=== PATIENT | male | born 1940 | race Caucasian/White ===

== ENCOUNTER 2017-06-29 23:59 | Observation (INO) | payer MEDICARE, OTHER ==
[~2017-06-29] VITALS: Ht 147.3 cm; Wt 52.5 kg
[~2017-06-29 23:59] MED LIST: DOXY100T PO; TESS200C PO; Z.0.NO CURRENT MEDS
[2017-06-30] VITALS (11 sets, daily range): BP systolic 118–148; BP diastolic 60–75; PULSE 75–105; RESP 16–20; TEMP 97.1–98.2; O2SAT 91–98
[2017-06-30] MEDS ORDERED: OFFICE MEDICATION PO (00:17)
[2017-06-30] MEDS ORDERED: ASPI81CH37 CHEW (00:17)
[2017-06-30] MEDS: RESP: ALBUTEROL 2.5 MG/IPRATROPIUM 0.5 MG NEB (SCH) INH ×4 (00:44→07:49)
[2017-06-30] MEDS ORDERED: SODIUM CHLORIDE 0.9% FLUSH 10 ML FLUSH IVF PRN (00:45)
[2017-06-30] MEDS ORDERED: methylPREDNISolone SOD SUCC 125 MG/2 ML VIAL IVP ONE (00:45)
[2017-06-30] MEDS ORDERED: LEVOFLOXACIN 750 MG PREMIX INJ 150 ML IV ONE (00:45)
[2017-06-30 01:03] LABS: AUTOMATED NEUTROPHIL # 4.3 TH/MM3 (1.8-7.7); BASOPHIL % 0.3 % (0.0-2.0); EOSINOPHIL # 0.2 TH/MM3 (0-0.4); EOSINOPHIL % 3.4 % (0.0-4.0); HEMATOCRIT 43.4 % (39.0-51.0); HEMO FLAGS DIFF FINAL; LYMPH % 25.3 % (9.0-44.0); LYMPHOCYTE # 1.8 TH/MM3 (1.0-4.8); MEAN CELL VOLUME 94.8 FL (80.0-100.0); MEAN CORPUSCULAR HEMOGLOBIN 32.2 PG (27.0-34.0); MONO % 11.4 % (0.0-8.0); NEUT % 59.6 % (16.0-70.0); PLATELET COUNT 303 TH/MM3 (150-450); RED BLOOD COUNT 4.58 MIL/MM3 (4.50-5.90); RED CELL DISTRIBUTION WIDTH 13.3 % (11.6-17.2); WHITE BLOOD COUNT 7.2 TH/MM3 (4.0-11.0)
[2017-06-30 01:05] LABS: BLOOD, URINE NEG (NEG); COMMENT (UR) CULT NOT INDICATED; CULTURE IF INDICATED CULT NOT INDICATED; GLUCOSE,URINE NEG (NEG); HYALINE CAST, URINE 3 /lpf (RARE); KETONE, URINE NEG (NEG); MUCUS URINE FEW /lpf (OCC); NITRITE,URINE NEG (NEG); SQUAMOUS EPITHELIAL CELL URINE <1 /hpf (0-5); URINE COLOR YELLOW (YELLW/STRAW)
--- NOTE | 2017-06-30 01:10 | RADRPT ---
EXAM DATE/TIME: 06/30/2017 00:59 [place] COMPARISON: No previous studies available for comparison. INDICATIONS : Short of breath. MEDICAL HISTORY : None. SURGICAL HISTORY : None. ENCOUNTER: Initial ACUITY: 1 day PAIN SCORE: 8/10 LOCATION: Bilateral chest FINDINGS: Marked scoliotic deformity of the thoracic spine. There are patchy airspace opacity in the right mid and lower lung zones. Cardiomediastinal contours are grossly unremarkable given significant chest wal l deformity. CONCLUSION: 1. Marked thoracic scoliosis and associated chest wall deformity significantly limits this portable e xamination. 2. Patchy airspace disease in the right mid and lower lung zones nay reflect atelectasis although inf ection or aspiration cannot be excluded in the appropriate clinical setting. Boyd Alan MD on June 30, 2017 at 1:07 Board Certified Radiologist. This report was verified electronically.
--- NOTE | 2017-06-30 01:16 | PD ---
HPI Chief Complaint: Chest Pain Time Seen by Provider: 00:34 Travel History International Travel<30 days: No Contact w/Intl Traveler<30days: No Traveled to known affect area: No History of Present Illness HPI The patient is a 77 year old male who presents to the [facility] emergency department with a history of intermittent chest pressure and shortness of breath that he reports began a week ago. The patient reports that it has been associated with subjective fever and chills. He reports having generalized weakness. Upper respiratory congestion with a "froggy quality" to his voice. The patient denies having any prior history of pneumonia. He reports having a remote history of smoking which he quit a 26 years of age. 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 He denies having any other congenital syndrome. He reports that he's had a cough is mainly been dry in character associated with a postnasal drip. He denies having any head congestion or nasal discharge. He reports having some indigestion recently. He reports having nausea without vomiting. He denies having any diarrhea. His last bowel movement was earlier today. He denies having any blood in his stool or black or tarry stools. He denies having any prior history of heart disease. His last stress test was done 3 years ago. He reports that he does have a history of hyperlipidemia and a history of shortness of breath in the past. He has been placed on inhalers in the past, however they did not help, therefore he discontinued them. His primary care physician is Dr. Iglesias. Otherwise on review of systems, the patient denies any neck pain, diarrhea, urinary symptoms, or neurologic symptoms. [facility] [place] Past Medical History Narrative Medical the patient's past medical history is significant for hyperlipidemia, history of shortness of breath, history of eating barrel chested from . Arthritis: Yes Autoimmune Disease: No Blood Disorders: No Cancer: No Cardiovascular Problems: Yes Chest Pain: Yes Diminished Hearing: No Musculoskeletal: Yes Neurologic: Yes Psychiatric: No Respiratory: Yes Tetanus Vaccination: Unknown Influenza Vaccination: Yes Past Surgical History Narrative Surgical the patient's past surgical history is reportedly none. Surgical History: No Previous Surgery Abdominal Surgery: No AICD: No Genitourinary Surgery: No Pacemaker: No Thoracic Surgery: No Other Surgery: No Social History Alcohol Use: Yes (FEW BEERS A WEEK) Tobacco Use: No Substance Use: No Allergies-Medications (Allergen,Severity, Reaction): Coded Allergies: No Known Allergies (Verified , 06/30/17) Reported Meds & Prescriptions Reported Meds & Active Scripts Active Ventolin Hfa 18 GM Inh (Albuterol Sulfate) 90 Mcg/Act Aer 2 Puff INH Q4-6H PRN Prednisone 20 Mg Tab 20 Mg PO DAILY Levaquin (Levofloxacin) 750 Mg Tablet 750 Mg PO Q24H Reported Aspirin Low Dose (Aspirin) 81 Mg Chew 81 Mg CHEW DAILY Office Medication (Miscellaneous Medication) Misc 1 Tab PO HS Review of Systems Except as stated in HPI: all other systems reviewed are Neg General / Constitutional: No: Fever Eyes: No: Visual changes HENT: Positive: Congestion, No: Headaches Cardiovascular: Positive: Chest Pain or Discomfort, Diaphoresis, Dyspnea on exertion Respiratory: Positive: Cough, Shortness of Breath Gastrointestinal: Positive: Nausea, Indigestion, No: Vomiting, Diarrhea, Abdominal Pain Genitourinary: No: Dysuria Musculoskeletal: No: Pain Skin: No Rash Neurologic: Positive: Weakness (generalized weakness), No: Focal Abnormalities , Change in Mentation, Slurred Speech, Sensory Disturbance Psychiatric: No: Depression Endocrine: No: Polydipsia Hematologic/Lymphatic: No: Easy Bruising Physical Exam Narrative General: The patient is a well-developed well-nourished male in no acute distress, barrel chested abnormality is noted which she reports he was born with. Head and Neck exam: Head is normocephalic atraumatic. Eyes: EOMI, pupils are equal round and reactive to light. Nose: Midline septum with pink mucous membranes Mouth: Dentition unremarkable. Moist mucus membranes. Posterior oropharynx is not erythematous. No tonsillar hypertrophy. Uvula midline. Airway patent. Neck: No palpable lymphadenopathy. No nuchal rigidity. No thyromegaly. Cardiovascular: Regular rate and rhythm without murmurs, gallops, or rubs. Lungs: Clear to auscultation bilaterally. No wheezes, rhonchi, or rales. Abdomen: Soft, without tenderness to palpation in all 4 quadrants of the abdomen. No guarding, rebound, or rigidity. Normal bowel sounds are audible. No tenderness on palpation of McBurney's point. Extremities: No clubbing, cyanosis, or edema. 2+ pulses in all 4 extremities. No calf tenderness on palpation. Back: No spinous process tenderness to palpation. No costovertebral angle tenderness to palpation. Neurologic Exam: Grossly nonfocal. Skin Exam: No rash noted. Intact skin that is warm and dry. Data Data Last Documented VS Vital Signs Date Time Temp Pulse Resp B/P (MAP) Pulse Ox O2 Delivery O2 Flow Rate FiO2 06/30/17 00:53 18 06/30/17 00:45 98 21 06/30/17 00:24 98.1 75 Nasal Cannula 2.00 Orders Orders Electrocardiogram (06/30/17 00:35) Complete Blood Count With Diff (06/30/17 00:35) Comprehensive Metabolic Panel (06/30/17 00:35) Creatine Kinase (Cpk) (06/30/17 00:35) Ckmb (Isoenzyme) Profile (06/30/17 00:35) Troponin I (06/30/17 00:35) B-Type Natriuretic Peptide (06/30/17 00:35) Lipase (06/30/17 00:35) Urinalysis - C+S If Indicated (06/30/17 00:35) Magnesium (Mg) (06/30/17 00:35) Chest, Single Ap (06/30/17 00:35) Iv Access Insert/Monitor (06/30/17 00:35) Ecg Monitoring (06/30/17 00:35) Oximetry (06/30/17 00:35) Sodium Chloride 0.9% Flush (Ns Flush) (06/30/17 00:45) Methylprednisolone So Succ Inj (Solumedr (06/30/17 00:45) Albuterol-Ipratropium Neb (Duoneb Neb) (06/30/17 00:45) Levofloxacin 750 Mg Premix Inj (Levaquin (06/30/17 00:45) Admit Order (Ed Use Only) (06/30/17 02:52) Aspirin Chew (Aspirin Chew) (06/30/17 03:00) Nitroglycerin 2% Oint (Nitroglycerin 2% (06/30/17 03:00) Labs Laboratory Tests Test 06/30/17 00:40 White Blood Count 7.2 TH/MM3 Red Blood Count 4.58 MIL/MM3 Hemoglobin 14.7 GM/DL Hematocrit 43.4 % Mean Corpuscular Volume 94.8 FL Mean Corpuscular Hemoglobin 32.2 PG Mean Corpuscular Hemoglobin Concent 34.0 % Red Cell Distribution Width 13.3 % Platelet Count 303 TH/MM3 Mean Platelet Volume 8.3 FL Neutrophils (%) (Auto) 59.6 % Lymphocytes (%) (Auto) 25.3 % Monocytes (%) (Auto) 11.4 % Eosinophils (%) (Auto) 3.4 % Basophils (%) (Auto) 0.3 % Neutrophils # (Auto) 4.3 TH/MM3 Lymphocytes # (Auto) 1.8 TH/MM3 Monocytes # (Auto) 0.8 TH/MM3 Eosinophils # (Auto) 0.2 TH/MM3 Basophils # (Auto) 0.0 TH/MM3 CBC Comment DIFF FINAL Differential Comment Urine Color YELLOW Urine Turbidity CLEAR Urine pH 5.0 Urine Specific [place] 1.021 Urine Protein NEG mg/dL Urine Glucose (UA) NEG mg/dL Urine Ketones NEG mg/dL Urine Occult Blood NEG Urine Nitrite NEG Urine Bilirubin NEG Urine Urobilinogen LESS THAN 2.0 MG/DL Urine Leukocyte Esterase NEG Urine WBC 2 /hpf Urine Squamous Epithelial Cells <1 /hpf Urine Hyaline Casts 3 /lpf Urine Mucus FEW /lpf Microscopic Urinalysis Comment CULT NOT INDICATED Blood Urea Nitrogen 21 MG/DL Creatinine 0.69 MG/DL Random Glucose 96 MG/DL Total Protein 7.9 GM/DL Albumin 3.9 GM/DL Calcium Level 8.6 MG/DL Magnesium Level 2.2 MG/DL Alkaline Phosphatase 60 U/L Aspartate Amino Transf (AST/SGOT) 21 U/L Alanine Aminotransferase (ALT/SGPT) 34 U/L Total Bilirubin 0.3 MG/DL Sodium Level 139 MEQ/L Potassium Level 4.4 MEQ/L Chloride Level 99 MEQ/L Carbon Dioxide Level 36.0 MEQ/L Anion Gap 4 MEQ/L Estimat Glomerular Filtration Rate 111 ML/MIN Total Creatine Kinase 81 U/L Troponin I LESS THAN 0.02 NG/ML B-Type Natriuretic Peptide 8 PG/ML Lipase 213 U/L [facility] Medical Decision Making Medical Screen Exam Complete: Yes Emergency Medical Condition: Yes Medical Record Reviewed: Yes Interpretation(s) Last Impressions Chest X-Ray 06/30/17 0035 Signed Impressions: Service Date/Time: Friday, June 30, 2017 00:59 - CONCLUSION: 1. Marked thoracic scoliosis and associated chest wall deformity significantly limits this portable examination. 2. Patchy airspace disease in the right mid and lower lung zones nay reflect atelectasis although infection or aspiration cannot be excluded in the appropriate clinical setting. Boyd Alan MD Differential Diagnosis Acute coronary syndrome, versus pneumonia, versus COPD exacerbation, versus asthma exacerbation, versus pulmonary fibrosis Narrative Course During the course of the patients emergency department visit, the patients history, examination, and differential diagnosis were reviewed with the patient. The patient had IV access obtained and blood work sent for analysis. 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 An ECG was done on arrival. The patient's ECG shows a sinus rhythm heart rate of 75, no acute ST segment elevation or depression, QRS duration is 110 ms, QTC 422 ms. The patient was initially provided Levaquin 750 mg IV, Solu-Medrol 125 mg IV, DuoNeb 1. The patients laboratory studies were reviewed and remarkable for a white count of 7.2, hemoglobin 14.7, platelets 303 with monocytes 11.4, CMP is remarkable for CO2 of 36, BUN 21, CPK 81, troponin I less than 0.02, BNP is 8, lipase 213. Urinalysis is unremarkable. Radiology studies were reviewed and remarkable for a chest x-ray that shows marked thoracic scoliosis and associated chest wall deformity that significantly limits this portable examination. Patchy airspace disease in the right mid and lower lung zones may reflect atelectasis although infection or aspiration cannot be excluded in the appropriate clinical setting. Given the patient's cough, chills, shortness of breath, pneumonia is suspected. Blood cultures 2 were sent. The patient had already been started on Levaquin for antibiotic. The patient will be admitted to the hospital for continued evaluation and treatment of chest pain, rule out serial enzymes, and treatment for suspected pneumonia. The patients results were discussed with the patient, including the plan of care. I explained that further testing and/ or monitoring is indicated based on the patients history, examination, and/ or laboratory findings. Therefore, I recommended admission for additional evaluation. The patient expressed understanding and was agreeable with this plan. The patient was admitted to the hospital in stable condition and sent to a bed under the care of the [facility]. Physician Communication Physician Communication The patient's case was discussed with Dr. Oquendo who did agree to admit the patient for further evaluation and treatment at this time. Diagnosis Primary Impression: Community acquired pneumonia Qualified Codes: J18.9 - Pneumonia, unspecified organism Additional Impression: Chest pain, rule out acute myocardial infarction Admitting Information Admitting Physician Requests: Admit Scripts Albuterol 18 GM Inh (Ventolin Hfa 18 GM Inh) 90 Mcg/Act Aer 2 PUFF INH Q4-6H Y for SHORTNESS OF BREATH, #1 INHALER 0 Refills Prov: Asmita Starks PA-C 06/30/17 Prednisone (Prednisone) 20 Mg Tab 20 MG PO DAILY for Inflammation, #3 TAB 0 Refills Prov: Asmita Starks PA-C 06/30/17 Levofloxacin (Levaquin) 750 Mg Tablet 750 MG PO Q24H for pneumonia, #5 TAB Prov: Asmita Starks PA-C 06/30/17 Lavonne Loving MD Jun 30, 2017 01:16
[2017-06-30 01:32] LABS: ALKALINE PHOSPHATASE 60 U/L (45-117); ALT (GPT) 34 U/L (12-78); ANION GAP 4 MEQ/L (5-15); AST (GOT) 21 U/L (15-37); BLOOD UREA NITROGEN 21 MG/DL (7-18); CHLORIDE 99 MEQ/L (98-107); GLOMERULAR FILTRATION RATE 111 ML/MIN (>89); MAGNESIUM 2.2 MG/DL (1.5-2.5); SODIUM (NA) 139 MEQ/L (136-145); TOTAL BILIRUBIN ADULT 0.3 MG/DL (0.2-1.0)
[2017-06-30 01:35] LABS: CREATINE KINASE 81 U/L (39-308); POTASSIUM 4.4 MEQ/L (3.5-5.1)
[2017-06-30] MEDS ORDERED: NITROGLYCERIN 2% OINT 1 GM PACKET TOPICAL ONE (03:00)
[2017-06-30] MEDS ORDERED: ASPIRIN 81 MG CHEW TAB CHEW ONE (03:00)
[2017-06-30] MEDS ORDERED: BISACODYL 10 MG SUPP RECTAL PRN (03:30)
[2017-06-30] MEDS ORDERED: SENNOSIDES 8.6 MG TAB PO PRN (03:30)
[2017-06-30] MEDS ORDERED: MAGNESIUM HYDROXIDE SUSP 30 ML CUP PO PRN (03:30)
[2017-06-30] MEDS ORDERED: NALOXONE HCL 0.4 MG/ML AMP IV PRN (03:30)
[2017-06-30] MEDS ORDERED: RESP: ALBUTEROL 2.5 MG/3 ML NEB (PRN) INH (03:30)
[2017-06-30] MEDS ORDERED: ACETAMINOPHEN 325 MG TAB PO PRN (03:30)
[2017-06-30] MEDS ORDERED: ONDANSETRON HCL 4 MG/2 ML VIAL IVP PRN (03:30)
[2017-06-30] MEDS ORDERED: SODIUM CHLORIDE 0.9% FLUSH 10 ML FLUSH IV FLUSH PRN (03:30)
[2017-06-30] MEDS ORDERED: HEPARIN SODIUM - SQ 10,000 UNITS/ML VIAL SQ SCH (05:00)
--- NOTE | 2017-06-30 05:27 | HHI.HP ---
[facility] Primary [facility] Physician Sharmin Iglesias MD Admission Diagnosis Pneumonia, cp ro mi Diagnoses: Chief Complaint: Short of breath Travel History International Travel<30 Days: No Contact w/Intl Traveler <30 Da: No Traveled to Known Affected Are: No History of Present Illness 77 years old male presented to the ED with a complaint of one week worsening short of breath fever and chills, losing voice, feeling like he wants to cough but he was not able to. Left chest pain 5 out of 10. No transfer no alleviating or exacerbating factor, oxygen make him feel better, patient removed the oxygen is O2 sat dropped to upper 80s. No nausea or vomiting no abdominal pain diarrhea constipation no dysuria urgency or frequency. Patient complain of significant sweating and drenching Review of Systems Except as stated in HPI: all other systems reviewed are Neg All systems reviewed and was positive for what is mentioned in history of present illness otherwise negative Past Family Social History Past Medical History Hyperlipidemia short of breath, para chest Past Surgical History No significant surgery Allergies: Coded Allergies: No Known Allergies (Verified , 06/30/17) Family History Review with the patient,not aware of significant medical history runs in his family Social History Quit smoking when he was 61 years old, no alcohol or also drug abuse Physical Exam Vital Signs Vital Signs Date Time Temp Pulse Resp B/P (MAP) Pulse Ox O2 Delivery O2 Flow Rate FiO2 06/30/17 05:15 97.8 89 19 121/63 (82) 95 06/30/17 03:44 84 16 125/65 (85) 97 Nasal Cannula 2.00 06/30/17 00:53 18 06/30/17 00:45 98 21 06/30/17 00:24 98.1 75 19 148/75 (99) 97 Nasal Cannula 2.00 06/30/17 00:02 97.1 79 16 145/73 (97) 91 Physical Exam GENERAL: This is a well-nourished, well-developed patient, in no apparent distress. SKIN: No rashes, ecchymoses or lesions. Cool and dry. HEAD: Atraumatic. Normocephalic. No temporal or scalp tenderness. EYES: Pupils equal round and reactive. Extraocular motions intact. No scleral icterus. No injection or drainage. ENT: Nose without bleeding, purulent drainage or septal hematoma. Throat without erythema, tonsillar hypertrophy or exudate. Uvula midline. Airway patent. NECK: Trachea midline. No JVD or lymphadenopathy. Supple, nontender, no meningeal signs. CARDIOVASCULAR: Regular rate and rhythm without murmurs, gallops, or rubs. RESPIRATORY: Clear to auscultation. Breath sounds equal bilaterally. No wheezes , rales, or rhonchi. GASTROINTESTINAL: Abdomen soft, non-tender, nondistended. No hepato-splenomegaly , or palpable masses. No guarding. MUSCULOSKELETAL: Extremities without clubbing, cyanosis, or edema. No joint tenderness, effusion, or edema noted. No calf tenderness. Negative Homans sign bilaterally. NEUROLOGICAL: Awake and alert. Cranial nerves II through XII intact. Motor and sensory grossly within normal limits. Five out of 5 muscle strength in all muscle groups. Normal speech. Laboratory Laboratory Tests Test 06/30/17 00:40 White Blood Count 7.2 Red Blood Count 4.58 Hemoglobin 14.7 Hematocrit 43.4 Mean Corpuscular Volume 94.8 Mean Corpuscular Hemoglobin 32.2 Mean Corpuscular Hemoglobin Concent 34.0 Red Cell Distribution Width 13.3 Platelet Count 303 Mean Platelet Volume 8.3 Neutrophils (%) (Auto) 59.6 Lymphocytes (%) (Auto) 25.3 Monocytes (%) (Auto) 11.4 Eosinophils (%) (Auto) 3.4 Basophils (%) (Auto) 0.3 Neutrophils # (Auto) 4.3 Lymphocytes # (Auto) 1.8 Monocytes # (Auto) 0.8 Eosinophils # (Auto) 0.2 Basophils # (Auto) 0.0 CBC Comment DIFF FINAL Differential Comment Urine Color YELLOW Urine Turbidity CLEAR Urine pH 5.0 Urine Specific [place] 1.021 Urine Protein NEG Urine Glucose (UA) NEG Urine Ketones NEG Urine Occult Blood NEG Urine Nitrite NEG Urine Bilirubin NEG Urine Urobilinogen LESS THAN 2.0 Urine Leukocyte Esterase NEG Urine WBC 2 Urine Squamous Epithelial Cells <1 Urine Hyaline Casts 3 Urine Mucus FEW Microscopic Urinalysis Comment CULT NOT INDICATED Blood Urea Nitrogen 21 Creatinine 0.69 Random Glucose 96 Total Protein 7.9 Albumin 3.9 Calcium Level 8.6 Magnesium Level 2.2 Alkaline Phosphatase 60 Aspartate Amino Transf (AST/SGOT) 21 Alanine Aminotransferase (ALT/SGPT) 34 Total Bilirubin 0.3 Sodium Level 139 Potassium Level 4.4 Chloride Level 99 Carbon Dioxide Level 36.0 Anion Gap 4 Estimat Glomerular Filtration Rate 111 Total Creatine Kinase 81 Troponin I LESS THAN 0.02 B-Type Natriuretic Peptide 8 Lipase 213 Result Diagram: 06/30/173906/30/1739 Imaging Last Impressions Chest X-Ray 06/30/1734 Signed Impressions: Service Date/Time: Friday, June 30, 2017 00:59 - CONCLUSION: 1. Marked thoracic scoliosis and associated chest wall deformity significantly limits this portable examination. 2. Patchy airspace disease in the right mid and lower lung zones nay reflect atelectasis although infection or aspiration cannot be excluded in the appropriate clinical setting. MD Jackie Soares VTE Risk Assessment Jackie VTE Risk Assessment: Mod/High Risk (score >= 2) Caprini Risk Assessment Model Point Value = 1 Point Value = 2 Point Value = 3 Point Value = 5 Age 41-60 Minor surgery BMI > 25 kg/m2 Swollen legs Varicose veins or History of unexplained or recurrent spontaneous Oral contraceptives or hormone replacement Sepsis (< 1 month) Serious lung disease, including pneumonia (< 1 month) Abnormal pulmonary function Acute myocardial infarction Congestive heart failure (< 1 month) History of inflammatory bowel disease Medical patient at bed rest Age 61-74 Arthroscopic surgery Major open surgery (> 45 min) Laparoscopic surgery (> 45 min) Malignancy Confined to bed (> 72 hours) Immobilizing plaster cast Central venous access Age >= 75 History of VTE Family history of VTE Factor V Leiden Prothrombin [id number] Lupus anticoagulant Anticardiolipin antibodies Elevated serum homocysteine Heparin-induced thrombocytopenia Other congenital or acquired thrombophilia Stroke (< 1 month) Elective arthroplasty Hip, pelvis, or leg fracture Acute spinal cord injury (< 1 month) Prophylaxis Regimen Total Risk Factor Score Risk Level Prophylaxis Regimen 0-1 Low Early ambulation 2 Moderate Order ONE of the following: *Sequential Compression Device (SCD) *Heparin 5000 units SQ BID 3-4 Higher Order ONE of the following medications: *Heparin 5000 units SQ TID *Enoxaparin/Lovenox 40 mg SQ daily (WT < 150 kg, CrCl > 30 mL/min) *Enoxaparin/Lovenox 30 mg SQ daily (WT < 150 kg, CrCl > 10-29 mL/min) *Enoxaparin/Lovenox 30 mg SQ BID (WT < 150 kg, CrCl > 30 mL/min) AND/OR *Sequential Compression Device (SCD) 5 or more Highest Order ONE of the following medications: *Heparin 5000 units SQ TID (Preferred with Epidurals) *Enoxaparin/Lovenox 40 mg SQ daily (WT < 150 kg, CrCl > 30 mL/min) *Enoxaparin/Lovenox 30 mg SQ daily (WT < 150 kg, CrCl > 10-29 mL/min) *Enoxaparin/Lovenox 30 mg SQ BID (WT < 150 kg, CrCl > 30 mL/min) AND *Sequential Compression Device (SCD) Assessment and Plan Assessment and Plan 77 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
[2017-06-30] MEDS ORDERED: methylPREDNISolone SOD SUCC 125 MG/2 ML VIAL IVP SCH (08:00)
[2017-06-30] MEDS ORDERED: DOCUSATE SODIUM 50 MG/SENNA 8.6 MG TAB PO SCH (09:00)
[2017-06-30] MEDS ORDERED: SODIUM CHLORIDE 0.9% FLUSH 10 ML FLUSH IV FLUSH SCH (09:00)
[2017-06-30 10:25] LABS: CREATINE KINASE 54 U/L (39-308)
[2017-06-30] MEDS ORDERED: BUDESONIDE-FORMOTEROL 160/4.5 MCG INHALER INH SCH (12:00)
[2017-06-30] MEDS ORDERED: LEVA750T9 PO (12:14)
[2017-06-30] MEDS ORDERED: PRED20 PO (12:14)
[2017-06-30] MEDS ORDERED: VENTAER INH (12:14)
--- NOTE | 2017-06-30 12:15 | HHI.DCPOC ---
Discharge Care Plan Diagnosis: (1) Acute bronchitis (2) Community acquired pneumonia Goals to Promote Your Health * To prevent worsening of your condition and complications * To maintain your health at the optimal level Directions to Meet Your Goals Take your medications as prescribed Follow your dietary instruction Follow activity as directed Keep your appointments as scheduled Take your immunizations and boosters as scheduled If your symptoms worsen call your PCP, if no PCP go to Urgent Care Center or Emergency Room Smoking is Dangerous to Your Health. Avoid second hand smoke Call the 24-hour hour crisis hotline for domestic abuse at Asmita Starks PA-C Jun 30, 2017 12:15
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
--- NOTE | 2017-06-30 13:47 | EKG ---
Date Performed: 06/30/2017 Time Performed: 00:11:48 PTAGE: 77 years EKG: Sinus rhythm NORMAL ECG Compared to prior tracing no significant change PREVIOUS TRACING : 09/22/2003 02.05 DOCTOR: Sincere Yeager Interpretating Date/Time 06/30/2017 13:45:23
[2017-07-01] MEDS ORDERED: LEVOFLOXACIN 750 MG TAB PO SCH (06:00)
== END 2017-06-30 13:35 | disposition home or self-care (01) ==
LOC: NEPC 23:59 → NEDA 06-30 02:54 → NEPHCDU 06-30 04:52
PROVIDERS: ADMIT Hospitalist; ATTEND Hospitalist
DX: J20.9 Acute bronchitis, unspecified (principal); J18.9 Pneumonia, unspecified organism; J44.1 Chronic obstructive pulmonary disease with (acute) exacerbation; J98.11 Atelectasis; E78.5 Hyperlipidemia, unspecified
CPT/HCPCS: 71010; 80053; 81001; 82550; 82948; 83690; 83735; 83880; 84484; 85025; 87449; 93005; 94640; 94664; 96365; 96366; 96372; 96375; 96376; 99285; G0378; J1644; J1956; J2930

== ENCOUNTER → 2018-02-23 | Outpatient (CLI) | payer OTHER ==
[~2018-02-23] MED LIST changes: +ASPI81CH6 CHEW; -DOXY100T PO; +LEVA750T9 PO; +OFFICE MEDICATION PO; +PRED20 PO; -TESS200C PO; +VENTAER INH; -Z.0.NO CURRENT MEDS
--- NOTE | 2018-02-25 09:55 | RSPPFT ---
DATE OF PROCEDURE: 02/23/18 COMMENTS: Spirometry shows FVC of 0.8 at 62% of predicted, FEV1 of 0.6 at 63%, FEV1/FVC ratio is normal. Flow is decreased at FEF 25, FEF 50, FEF 75 and FEF 25-75. There is no response after bronchodilator treatment. Diffusion capacity is normal. Lung volumes were not done. Room air arterial blood gases show pH of 7.38, PCO2 of 61, PO2 of 57, BiCarb of 35 and Saturation at 85%. Flow volume loop indicates a restrictive pattern. 6-minute walk test shows de-saturation. IMPRESSION: 1. Study is suggestive of restrictive lung disease. 2. No response after bronchodilator treatment. 3. Normal diffusion capacity. 4. Room air blood gases show hypoxia and compensated respiratory acidosis. 5. 6-minute walk test shows de-saturation.
== END ==
LOC: HRSP 08:49
PROVIDERS: ATTEND Internal Medicine
DX: R06.00 Dyspnea, unspecified (principal)
CPT/HCPCS: 36600; 82805; 94060; 94618; 94729

== ENCOUNTER 2018-08-16 11:31 | Observation (INO) ==
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
[2018-08-16 14:33] LABS: Baso % (Auto) 0.5 % (0.0-2.0); Eos # (Auto) 0.2 th/mm3 (0.0-0.4); Eos % (Auto) 3.6 % (0.0-4.0); Hematocrit 48.1 % (39.0-51.0); Hemoglobin 15.8 gm/dL (13.0-17.0); Lymph # (Auto) 1.3 th/mm3 (1.0-4.8); Lymph % (Auto) 30.9 % (9.0-44.0); Mean Corpuscular HGB Conc 32.8 % (32.0-36.0); Mean Corpuscular Hemoglobin 31.9 pg (27.0-34.0); Mean Corpuscular Volume 97.1 fL (80.0-100.0); Mean Platelet Volume 8.3 fL (7.0-11.0); Mono # (Auto) 0.6 th/mm3 (0.0-0.9); Mono % (Auto) 14.5 % (0.0-8.0); Neut # (Auto) 2.2 th/mm3 (1.8-7.7); Neut % (Auto) 50.5 % (16.0-70.0); Platelet Count 310 th/mm3 (150-450); Red Blood Count 4.96 mil/mm3 (4.50-5.90); Red Cell Distribution Width 13.9 % (11.6-17.2); White Blood Count 4.3 th/mm3 (4.0-11.0)
[2018-08-16 14:51] LABS: Alanine Aminotransferase 24 U/L (12-78); Albumin 3.9 g/dL (3.4-5.0); Anion Gap 2 meq/L (5-15); Aspartate Aminotransferase 14 U/L (15-37); Blood Urea Nitrogen 19 mg/dL (7-18); Calcium 8.6 mg/dL (8.5-10.1); Carbon Dioxide 36.7 meq/L (21.0-32.0); Chloride 100 meq/L (98-107); Glomerular Filtration Rate Greater Than 89 mL/min (>89); Glucose,Random 85 mg/dL (74-106); Potassium 4.6 meq/L (3.5-5.1); Sodium 139 meq/L (136-145)
[2018-08-16 14:54] LABS: Alkaline Phosphatase 52 U/L (45-117); Total Protein 7.7 g/dL (6.4-8.2)
--- NOTE | 2018-08-16 15:10 | XR ---
EXAM DATE: 08/16/2018 2:04 PM EDT AGE/SEX: 78 years / Male INDICATIONS: . Pain and pressure anterior chest, indigestion, short of breath CLINICAL DATA: This is the patient's initial encounter. Patient reports that signs and symptoms have been present for 2 days and indicates a pain score of 5/10. MEDICAL/SURGICAL HISTORY: None. None. COMPARISON: POI, XR CHEST PA AND LAT, 01/13/2018. . FINDINGS: Today's exam is compared to the prior study. There is severe deformity involving the thorax and thora cic spine. There continues to be parenchymal changes in the right midlung and left perihilar area. Th e parenchymal changes left perihilar area appear to be improved compared to the prior study. The pare nchymal changes in the right midlung appear to be stable. Otherwise, I see no significant changes com pared to the prior examination. CONCLUSION: Stable severe deformity of the thorax and thoracic spine. Stable parenchymal changes in the right midlung. Improving left perihilar infiltrate compared to the prior study. Electronically signed by: Berto Ignacio MD 08/16/2018 3:09 PM EDT
--- NOTE | 2018-08-16 15:44 | CT ---
EXAM DATE: 08/16/2018 3:00 PM EDT AGE/SEX: 78 years / Male INDICATIONS: Chest pain, shortness of breath, cough. CLINICAL DATA: This is the patient's initial encounter. Patient reports that signs and symptoms have been present for 1 week and indicates a pain score of 4/10. MEDICAL/SURGICAL HISTORY: . Barrel chest, oxygen dependence. None. RADIATION DOSE: 14.06 CTDI (mGy) COMPARISON: POI, CTA PULMONARY ANGIOGRAM, 01/19/2018. . TECHNIQUE: Volumetric scanning was performed using a multi-row detector CT scanner during bolus infu kwan of 73 ml Omnipaque 350 (iohexol) nonionic water-soluble contrast as a single exam dose. The deni a was post processed with a variety of visualization algorithms including full volume maximum intensi ty projection and sliding thin slab reformation. Using automated exposure control and adjustment of the mA and/or kV according to patient size, radiation dose was kept as low as reasonably achievable t o obtain optimal diagnostic quality images. DICOM format image data is available electronically for review and comparison. FINDINGS: Pulmonary Arteries: No filling defects are seen in the pulmonary arteries through the segmental vess els. The main pulmonary artery is normal in diameter. Lung: Mild groundglass opacities at the lung bases similar to previous exam. No significant neural f ocal parenchymal abnormality. Pleura: No effusion, significant pleural thickening or pneumothorax. Mediastinum: Heart is unremarkable without pericardial effusion.No evidence of mediastinal or hilar adenopathy. Osseous Structures: Severe thoracic dextroscoliosis and kyphotic abnormality. Other: Visulaized upper abdomen is unremarkable. CONCLUSION: 1. No CT evidence for pulmonary artery embolism. 2. Minimal bibasilar atelectasis/scarring. 3. Redemonstration of severe thoracic dextroscoliosis and kyphotic abnormality. Electronically signed by: Boyd Alan MD 08/16/2018 3:42 PM EDT
[2018-08-16] MEDS ORDERED: Aspirin 325 MG Tablet PO SCH (16:00)
[2018-08-16] MEDS ORDERED: Acetaminophen 500 MG Tablet PO PRN (16:07)
[2018-08-16 18:15] LABS: Creatine Kinase 78 U/L (39-308)
[2018-08-17 08:54] VITALS: BP 183/74; PULSE 74; RESP 16; TEMP 98.6; O2SAT 95
--- NOTE | 2018-08-17 10:00 | P.HPCA ---
History of Present Illness Primary Care Physician: Sharmin Iglesias MD Chief Complaint: Chest pain History of Present Illness: This is a 78-year-old male that presents to ED via private vehicle with complaint of left-sided chest discomfort, diaphoresis, and shortness of breath essentially on a daily basis when he is waking up. He has been seen by a promotions executive and a doweler and symptoms still persist. Asked what the difference is that brought him to the ED recently and he states he has had a little bit of a cough as well. Recently seen by Dr. Mendoza of cardiology but has not had stress testing recently. Currently denies chest discomfort. Denied nausea with the symptoms. He has found nothing to bring on his symptoms. Patient has a barrel chest. Denies history of hypertension, hyperlipidemia, diabetes, and CAD. Denies family history of CAD. He is essentially non-smoker. He states he quit smoking when he was a kid. He does not recall smoking even a couple years. - Diagnosis (1) Chest pain Review of Systems General: Patient denies fevers, chills, and recent travel. HEENT: Patient denies headache, sore throat, difficulty swallowing. Cardiovascular: Has the chest discomfort as mentioned above. Denies sensation of heart beating rapidly or irregularly. No syncope. He becomes diaphoretic in the morning soon after waking up. Respiratory: He has noticed that he can become short of breath after he wakes up. He also gets short of breath with activities but that is not new. He states he uses oxygen at nighttime. Denies inspirational chest discomfort. Has had a nonproductive cough last few days. Denies wheezing or hemoptysis. GI: Patient denies nausea, vomiting, diarrhea, abdominal pain, bloody stools. Musculoskeletal: Patient denies joint pain or edema. Denies calf pain or edema. Neurovascular: Patient denies numbness, tingling, weakness in extremities. Denies headache. Endocrine: Denies polyuria and polydipsia. Hematologic: Denies easy bruising. Skin: Denies rash or itching. PMFSH - History History Provided By: Patient - Medical History Medical History: Medical History (Last Reviewed 08/16/18 @ 14:37 by Dulce Amaya MD) Patient denies medical problems - Surgical History Surgical History: Surgical History (Last Reviewed 08/16/18 @ 14:38 by Dulce Amaya MD) No history of previous surgery - Tobacco History Second Hand Smoke Exposure: No Smoking Status: Never smoker - Alcohol History How Often Do You Have a Drink Containing Alcohol: 2 to 3 times a week - Substance Use History Substance History: No History of Abuse - Travel History Recent Travel in the [place] Within the Last 8 Weeks: No Recent Travel Out of the Country Within the Last 8 Weeks: No - Immunization History Tetanus Immunization: >5 Years Medications and Allergies Active Medications: Active Medications Acetaminophen (Tylenol) 500 mg PO Q6H PRN PRN Reason: pain scale 1-5 Hydrocodone Bitart/Acetaminophen ([place] 7.5/325) 1 tab PO Q6H PRN PRN Reason: pain scale 6-10 Albuterol (Duoneb Neb (Prn)) 1 ampul NEB Q4HR NEB PRN PRN Reason: SHORTNESS OF BREATH/WHEEZING Aspirin (Aspirin) 325 mg PO DAILY [facility] Last Admin: 08/16/18 16:03 Dose: 325 mg Clonidine HCl (Catapres) 0.1 mg PO Q6H PRN PRN Reason: SBP >165 OR DBP > 110 Nitroglycerin (Nitrostat Sl) 0.4 mg SL Q5M PRN PRN Reason: CHEST PAIN Last Admin: 08/16/18 16:03 Dose: 0.4 mg Ondansetron HCl (Zofran Inj) 4 mg IV.PUSH Q6H PRN PRN Reason: NAUSEA OR VOMITING Sodium Chloride (Ns Flush) 2 ml IV.FLUSH BID [facility] Last Admin: 08/16/18 21:51 Dose: 2 ml Sodium Chloride (Ns Flush) 2 ml IV.FLUSH PRN PRN PRN Reason: FLUSH AFTER USING IV ACCESS Allergies Allergy/AdvReac Type Severity Reaction Status Date / Time No Known Allergies Allergy Verified 08/16/18 14:01 Home Medications Medication Instructions Recorded Confirmed Type No Known Home Medications 08/16/18 08/16/18 History Exam Vital signs: Vital Signs 08/16/18 11:35 08/16/18 14:03 08/16/18 14:09 Temperature 97.6 F Pulse Rate 89 81 77 Respiratory Rate 20 28 H Blood Pressure 160/75 H 177/82 H Pulse Oximetry 98 93 L 96 08/16/18 20:00 08/17/18 00:00 08/17/18 04:00 Temperature 98.0 F 98.2 F 97.3 F L Pulse Rate 75 78 88 Respiratory Rate 17 18 17 Blood Pressure 135/87 147/67 H 113/58 L Pulse Oximetry 95 93 L 96 08/17/18 08:00 Temperature 98.6 F Pulse Rate 74 Respiratory Rate 16 Blood Pressure 183/74 H Pulse Oximetry 95 Intake & Output 08/16/18 08/17/18 08/17/18 18:59 06:59 18:59 Weight 51.71 kg 51.71 kg Other: # Voids 2 Date of Last Bowel Movement 08/16/18 Weight On Admission 51.71 kg Narrative: GENERAL: This is a well-nourished, well-developed patient, in no apparent distress. Patient speaks in clear complete sentences. Patient is pleasant. HEENT: Head is atraumatic and normocephalic. Neck is supple without lymphadenopathy and trachea is midline. No JVD or carotid bruits. CARDIOVASCULAR: Regular rate and rhythm without murmurs, gallops, or rubs. 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 Clear to auscultation. Breath sounds equal bilaterally. No wheezes, rales, or rhonchi. Chest wall is nontender. No use of accessory muscles. GASTROINTESTINAL: Abdomen is nontender, nondistended. Abdomen soft. No obvious pulsatile mass or bruit. No CVA tenderness. Strong femoral pulses bilaterally. Normal bowel sounds in all quadrants. MUSCULOSKELETAL: Patient is moving upper and lower extremities freely. No calf tenderness or edema, no Homans sign. Strong pulses in upper and lower extremities. NEUROLOGICAL: Patient is alert and oriented. Cranial nerves 2-12 are grossly intact. No focal deficits and speech is clear. SKIN: No rash and turgor is normal. Results 08/16/18 14:10 08/16/18 14:10 Cardiac Enzymes 08/16/18 08/16/18 08/16/18 Range/Units 14:10 14:10 17:18 AST 14 L (15-37) U/L Troponin I Less than 0.02 L Less than 0.02 L (0.02-0.05) ng/mL B-Natriuretic Peptide 38 (0-100) pg/mL 08/16/18 Range/Units 21:53 AST (15-37) U/L Troponin I Less than 0.02 L (0.02-0.05) ng/mL B-Natriuretic Peptide (0-100) pg/mL Coagulation 08/16/18 Range/Units 14:10 B-Natriuretic Peptide 38 (0-100) pg/mL CBC 08/16/18 Range/Units 14:10 WBC 4.3 (4.0-11.0) th/mm3 RBC 4.96 (4.50-5.90) mil/mm3 Hgb 15.8 (13.0-17.0) gm/dL Hct 48.1 (39.0-51.0) % Plt Count 310 (150-450) th/mm3 Neut # (Auto) 2.2 (1.8-7.7) th/mm3 Lymph # (Auto) 1.3 (1.0-4.8) th/mm3 [place] # (Auto) 0.6 (0.0-0.9) th/mm3 Eos # (Auto) 0.2 (0.0-0.4) th/mm3 Baso # (Auto) 0.0 (0.0-0.2) th/mm3 Comprehensive Metabolic Panel 08/16/18 Range/Units 14:10 Sodium 139 (136-145) meq/L Potassium 4.6 (3.5-5.1) meq/L Chloride 100 (98-107) meq/L Carbon Dioxide 36.7 H (21.0-32.0) meq/L BUN 19 H (7-18) mg/dL Creatinine 0.52 L (0.60-1.30) mg/dL Calcium 8.6 (8.5-10.1) mg/dL AST 14 L (15-37) U/L ALT 24 (12-78) U/L Alkaline Phosphatase 52 (45-117) U/L Total Protein 7.7 (6.4-8.2) g/dL Albumin 3.9 (3.4-5.0) g/dL Intake and Output 08/16/18 08/17/18 08/17/18 22:59 06:59 14:59 Other: # Voids 2 Date of Last Bowel Movement 08/16/18 Weight 51.71 kg 51.71 kg Weight On Admission 51.71 kg - Imaging and Cardiology Imaging: Impressions Chest X-Ray 08/16/18 14:04 CONCLUSION: Stable severe deformity of the thorax and thoracic spine. Stable parenchymal changes in the right midlung. Improving left perihilar infiltrate compared to the prior study. Chest CTA 08/16/18 14:37 CONCLUSION: 1. No CT evidence for pulmonary artery embolism. 2. Minimal bibasilar atelectasis/scarring. 3. Redemonstration of severe thoracic dextroscoliosis and kyphotic abnormality. EKG interpretations - EKG EKG shows: sinus rhythm (EKGs are sinus rhythm without significant ST segment depressions or elevations.) Caprini VTE Risk Assessment Caprini VTE Risk Assessment: Moderate/High Risk (score >= 2) Caprini Risk Assessment Model: Point Value = 1 Point Value = 2 Point Value = 3 Point Value = 5 Age 41-60 Minor surgery BMI > 25 kg/m2 Swollen legs Varicose veins or History of unexplained or recurrent spontaneous Oral contraceptives or hormone replacement Sepsis (< 1 month) Serious lung disease, including pneumonia (< 1 month) Abnormal pulmonary function Acute myocardial infarction Congestive heart failure (< 1 month) History of inflammatory bowel disease Medical patient at bed rest Age 61-74 Arthroscopic surgery Major open surgery (> 45 min) Laparoscopic surgery (> 45 min) Malignancy Confined to bed (> 72 hours) Immobilizing plaster cast Central venous access Age >= 75 History of VTE Family history of VTE Factor V Leiden Prothrombin [id number] Lupus anticoagulant Anticardiolipin antibodies Elevated serum homocysteine Heparin-induced thrombocytopenia Other congenital or acquired thrombophilia Stroke (< 1 month) Elective arthroplasty Hip, pelvis, or leg fracture Acute spinal cord injury (< 1 month) Prophylaxis Regimen: Total Risk Factor Score Risk Level Prophylaxis Regimen 0-1 Low Early ambulation 2 Moderate Order ONE of the following: *Sequential Compression Device (SCD) *Heparin 5000 units SQ BID 3-4 Higher Order ONE of the following medications: *Heparin 5000 units SQ TID *Enoxaparin/Lovenox 40 mg SQ daily (WT < 150 kg, CrCl > 30 mL/min) *Enoxaparin/Lovenox 30 mg SQ daily (WT < 150 kg, CrCl > 10-29 mL/min) *Enoxaparin/Lovenox 30 mg SQ BID (WT < 150 kg, CrCl > 30 mL/min) AND/OR *Sequential Compression Device (SCD) 5 or more Highest Order ONE of the following medications: *Heparin 5000 units SQ TID (Preferred with Epidurals) *Enoxaparin/Lovenox 40 mg SQ daily (WT < 150 kg, CrCl > 30 mL/min) *Enoxaparin/Lovenox 30 mg SQ daily (WT < 150 kg, CrCl > 10-29 mL/min) *Enoxaparin/Lovenox 30 mg SQ BID (WT < 150 kg, CrCl > 30 mL/min) AND *Sequential Compression Device (SCD) Assessment and Plan - Assessment (1) Chest pain Code(s): R07.9 - Chest pain, unspecified Status: Acute - Plan * Chest pain: Patient has had serial cardiac enzymes and EKGs for ruling out purposes. He was seen by Dr. Horvath cardiology and chest pain center. I discussed this patient with his doweler. He will undergo a Lexiscan. He will be discharged home if the stress test is nonischemic with instructions to follow-up with his PCP and doweler. Return to ED for interval issues. Patient stable at this time. He is agreeable to this plan. H&P: Quality - VTE Deep Vein Thrombosis/Pulmonary Embolism Present on Admission: No
[2018-08-17] MEDS ORDERED: Regadenoson Inj 0.4 MG/5 ML Syringe IV.PUSH ONE (10:08)
--- NOTE | 2018-08-17 11:15 | NM ---
EXAM DATE: 08/17/2018 8:55 AM EDT AGE/SEX: 78 years / Male INDICATIONS:Angina. . CLINICAL DATA: This is the patient's initial encounter. Patient reports that signs and symptoms have been present for 4 - 6 days and indicates a pain score of 5/10. MEDICAL/SURGICAL HISTORY: None. None. COMPARISON: No prior exams available for comparison. DOSE: 8.5 mCi Tc 99m Myoview at rest 27.2 mCi [id number] at stress 0.4 mg Lexiscan STRESS SYMPTOMS: Chest pain and headache. EJECTION FRACTION: 49 % TECHNIQUE: The patient underwent pharmacologic stress with infusion of prescribed dose. Continuous ECG tracing was monitored during stress. Gated SPECT imaging was performed after stress and conventi onal SPECT imaging was performed at rest. The examination was performed on a SPECT/CT scanner, both attenuation and non-corrected datasets were reviewed. FINDINGS: Distribution: The maximum perfused segment at stress is in the posterior basal wall. Perfusion Study: Mildly diminished apical perfusion without definite redistribution Gated Study: There are intact wall motion and wall thickening without hypokinetic or dyskinetic segm ents. The ejection fraction is calculated at 49%. RISK CATEGORY: Intermediate (1-3 % Annual Mortality Rate) CONCLUSION: 1. Borderline ejection fraction. 2. Small size moderate severity apical perfusion abnormality without redistribution Electronically signed by: Karri Holden MD 08/17/2018 11:13 AM EDT
--- NOTE | 2018-08-17 16:37 | ECG ---
Date Performed: 08/16/2018 Time Performed: 11:42:31 PTAGE: 78 years EKG: Sinus rhythm NORMAL ECG Artifact Since PREVIOUS TRACING , no significant change noted PREVIOUS TRACIN06/30/2017 00.11 DOCTOR: Richa Horvath Interpretating Date/Time 08/17/2018 16:36:05
--- NOTE | 2018-08-17 16:37 | ECG ---
Date Performed: 08/16/2018 Time Performed: 17:17:33 PTAGE: 78 years EKG: Sinus rhythm NORMAL ECG Since PREVIOUS TRACING , no significant change noted DOCTOR: Richa Horvath Interpretating Date/Time 08/17/2018 16:36:30
--- NOTE | 2018-08-17 16:38 | ECG ---
Date Performed: 08/16/2018 Time Performed: 21:06:44 PTAGE: 78 years EKG: Sinus rhythm WITH OCCASIONAL SUPRAVENTRICULAR PREMATURE COMPLEXES PROBABLE INFERIOR MYOCARDIAL INFARCTION ABNORMA L ECG Since PREVIOUS TRACING , no significant change noted DOCTOR: Richa Horvath Interpretating Date/Time 08/17/2018 16:36:41
--- NOTE | 2018-08-17 16:39 | TR ---
Date Performed: 08/17/2018 Time Performed: 09:55:42 DOCTOR: Richa Horvath DRUG LIST: CLINICAL HISTORY: CHEST PAIN REASON FOR TEST: CHEST PAIN REASON FOR ENDING: OBSERVATION: CONCLUSION: Lexiscan stress test was performed under standard four minute protocol. Radionuclid e was injected one minute prior to ending the test. No electrocardiographic abormalities were present to suggest ischemia. Nuclear imaging and interpretation are pending. COMMENTS: Lexiscan stress test was performed under standard four minute protocol. Radionuclide was injected one minute prior to ending the test. No electrocardiographic abormalities were present t o suggest ischemia. Nuclear imaging and interpretation are pending.
== END 2018-08-17 11:40 | disposition home or self-care (01) ==
LOC: NEDA 11:31 → NEPE 11:31 → NEPHCDU 17:31
PROVIDERS: ADMIT Internal Medicine Cardiovascular Disease; ATTEND Internal Medicine Cardiovascular Disease